=== PATIENT | female | born 1960 | race Caucasian/White ===

== ENCOUNTER 2017-03-22 03:33 | Emergency (ER) | payer OTHER ==
[~2017-03-22] VITALS: Ht 162.6 cm; Wt 61.2 kg
[2017-03-22 04:25] VITALS: BP 149/85
--- NOTE | 2017-03-22 04:25 | Emergency Room Report ---
History of Present Illness Time Seen by [id number] Presenting Problem in Triage Pt arrived:Walked Presenting Problem:219 RN STATES SHE RECIEVED A CONTAMINATED (WITH BLOOD) NEEDLE STICK DURING VENIPUNCTURE OF A PATIENT ADMITTED TO ER. SEEN TODAY FOR RISK ASSESSMENT TREATMENT AND COUNSELLING Onset of symptoms date/time:03/22/17 or onset unknown for: Treatment Prior to Arrival: WASHED PUNCTURE WOUND IN LEFT THUMB WITH SOAP AND HOT WATER FOR ONE MINUTE ALSO TREATED WITH ALCOHOL SWABS AND DRESSED WITH BANDAID AFTER THAT [employer] Provided by:NURSE Sepsis Risk Assessment: Temp: 97.6 B/P: 149/85 MAP: 106 Pulse: 77 Resp: 20 Recent fever? N Clinical Suspician of Infection? N Mental Status: 1 - Regular (Normal Baseline) Sepsis Risk:Low Sepsis Risk Have you (or family members/close friends) recently traveled outside the [place]? N If Yes, where/when: Have you had exposure to infectious disease within the past month? N TB? Other? Specify: Source patient, RN notes reviewed, old records Exam Limitations no limitations Comment needle stick lt thumb from known pt who has no known inf disease while starting iv Cardiac Chest Pain Chest pain indicative of cardiac No Timing/Duration this evening Severity moderate Home Medications Reported Medications BUPROPION HCL (Bupropion XL) 300 MG PO DAILY #15 History Medical History General CAD? No Angina: No IA: No Hypertension? No Hyperlipidemia? No CHF? No DVT? No PE? No COPD? No Asthma? No Anemia? No GERD? Yes Gastric ulcers? No GI Bleed? No Hernia? No Thyroid Problems? Yes Hypothyroidism? No CVA? No Seizures? No Diabetes? No Renal Insuffiency? No End Stage Renal Disease? No UTI? Yes Stones? No BPH? No GB Disease: No Nephritic Syndrome? No Asplenia? No Hepatitis? No Sickle Cell Disease? No Arthritis? No Migraines? No Cataracts? No Glaucoma? No MRSA? No HIV? No TB? No Anxiety? Yes Depression? Yes Cancer? 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 2 or more SIRS Criteria Met? B/P:149/85 MAP:106 Creatinine >2.0? UA output<0.5ml/kg/hr for 2 hrs? Platelet count >100,000? Lactate >2.0mmol/1? INR >1.2 or PTT > than 60 sec? Evidence of Organ Dysfunction? Provider documented clinical suspician of infection? N Sepsis Criteria Count: 1 Sepsis Risk: Low Sepsis Risk General Appearance no apparent distress Eye Exam - bilateral eye PERRL, bilateral eye EOMI Ear, Nose, Throat normal ENT inspection Respiratory Status No: respiratory distress. Cardiovascular regular rate/rhythm Strength 4 Upper Ext (L), 4 Upper Ext (R), 4 Lower Ext (L), 4 Lower Ext (R) Neurologic alert Mental status normal mood/affect Skin pw lt thumb /no reddness Medical Decision Making LABS/Meds/Orders Pt receiving controlled substance in ED? No Results/Orders Orders Procedure Date/time Status PARTIAL THROMBOPLASTIN TIME 03/22 356 Active PROTHROMBIN TIME 03/22 356 Active LIVER PROFILE 03/22 356 Active ANTI HIV (SUDS) 03/22 356 Active ANTI HIV 03/22 356 Active HEPATITUS C VIRUS AB 03/22 356 Active HEPATITUS B SURFACE ANTIGEN 03/22 356 Active HEPATITUS B SURFACE AB 03/22 356 Active CBC WITH AUTO DIFF 03/22 356 Active Departure Departure Time of Disposition 0421 Disposition DC Home or Self Care(routine) Clinical Impression Primary Impression: Needle stick injury of finger of left hand Qualifiers: Encounter type: initial encounter Qualified Code: S61.239A - Puncture wound without foreign body of unspecified finger without damage to nail , initial encounter Condition STABLE Patient Instructions DI for Puncture Wound Additional Instructions call employee health for follow up Discharge Counseling Counseled pt/family regarding diagnosis, follow up needs ED Critical Care Critical Care No Comments known source and low risk - no rx at this time at 0424
[2017-03-22 05:07] LABS: BILIRUBIN, INDIRECT 0.42 mg/dL (0-0.9); HEMOGLOBIN 13.6 g/dL (12.2-16.2); LYMPH # 2.3 K/mm3 (0.7-4.5); LYMPH % 39.1 % (10-50.0)
[2017-03-23 08:46] LABS: HBsAg Screen Negative (Negative); HIV Screen 4th Generation wRfx Non Reactive (Non Reactive); Hep B Surface Ab, Qual Non Reactive (.); Hep C Virus Ab <0.1 (0.0-0.9)
== END 2017-03-22 04:27 | disposition home or self-care (01) ==
LOC: ER 03:33
PROVIDERS: Emergency Medicine
DX: S61.032A Puncture wound without foreign body of left thumb without damage to nail, initial encounter (principal); W45.8XXA Other foreign body or object entering through skin, initial encounter; W26.8XXA Contact with other sharp object(s), not elsewhere classified, initial encounter; Y93.F9 Activity, other caregiving; Y92.239 Unspecified place in hospital as the place of occurrence of the external cause; Y99.0 Civilian activity done for income or pay; Z87.891 Personal history of nicotine dependence; Z79.899 Other long term (current) drug therapy